=== PATIENT | female | born 1990 | race Caucasian/White ===

== ENCOUNTER 2016-06-22 11:47 | Emergency (ER) | payer BC, MEDICAID ==
[~2016-06-22] VITALS: Ht 157.5 cm; Wt 79.2 kg
[~2016-06-22 11:47] MED LIST: CRES10 PO
[2016-06-22 12:01] VITALS: Ht 157.5 cm; Wt 79.2 kg
[2016-06-22] MEDS ORDERED: D-ME473S18 PO (13:40)
[2016-06-22] MEDS ORDERED: IBUP-1542 PO (13:40)
[2016-06-22] MEDS ORDERED: AZIT250T94 PO (13:40)
--- NOTE | 2016-06-22 13:45 | ERD ---
ER Documentation Chief Complaint Date/Time DATE: 06/22/16 TIME: 13:43 Chief Complaint B ear pain and diminished hearing X 3 days. HPI This 25-year-old female presents with bilateral ear pain and cough congestion for last 3 days. There is no history of vomiting, abdominal pain, diarrhea, neck stiffness, rashes ROS All systems reviewed and are negative except as per history of present illness. Medications Home Meds Active Scripts Dextromethorphan Hb-Promethazine Hcl (Promethazine DM Syrup) 473 Ml Syrup, 5 ML PO Q6H Y for COUGH, #4 OZ Prov:RONEY VASQUEZ MD 06/22/16 Ibuprofen* (Motrin*) 600 Mg Tab, 600 MG PO Q6, #15 TAB Prov:RONEY VASQUEZ MD 06/22/16 Azithromycin* (Zithromax*) 250 Mg Tablet, 250 MG PO .ZPACK DIRECTED, #6 TAB TAKE 500 MG (2 TABS) THE FIRST DAY THEN 250 MG (1 TAB) DAYS 2-5 Prov:RONEY VASQUEZ MD 06/22/16 Reported Medications Rosuvastatin Calcium* (Crestor*) 10 Mg Tablet, 10 MG PO DAILY 05/20/12 Allergies Allergies: Coded Allergies: No Known Allergies (Verified Allergy, Mild, 05/20/12) PMhx/Soc History of Surgery: No Anesthesia Reaction: No Hx Neurological Disorder: No Hx Respiratory Disorders: No Hx Cardiac Disorders: No Hx Psychiatric Problems: No Hx Miscellaneous Medical Probl: Yes (HIGH CHOLESTEROL) Hx Alcohol Use: No Hx Substance Use: No Hx Tobacco Use: No Physical Exam Vitals Vital Signs Date Time Temp Pulse Resp B/P Pulse Ox O2 Delivery O2 Flow Rate FiO2 06/22/16 12:01 97.3 77 18 129/66 98 Physical Exam Const: [] Alert, [id number] per Head: Atraumatic Eyes: Normal Conjunctiva ENT: Normal External Ears, Nose and Mouth. Pupils nasal congestion. TMs red and bulging. Neck: Full range of motion..~ No meningismus. Resp: Clear to auscultation bilaterally Cardio: Regular rate and rhythm, no murmurs Abd: Soft, non tender, non distended. Normal bowel sounds Skin: No petechiae or rashes Back: No midline or flank tenderness Ext: No cyanosis, or edema Neur: Awake and alert Psych: Normal Mood and Affect Procedures/MDM Patient presents with URI symptoms and signs of otitis media, she will treated with Zithromax, ibuprofen promethazine. The patient was stable with no new complaints during the ER course. Clinically, there is no current evidence to suggest meningitis, sepsis, acute abdomen, pneumonia, acute coronary syndrome, pulmonary embolism, or any other emergent condition appearing to require further evaluation or hospitalization. The patient should certainly return for any new or worsening symptoms per the aftercare instructions. They should otherwise follow-up with her primary care doctor for reevaluation this week. Departure Diagnosis: Primary Impression: Otitis media Otitis media type: suppurative Laterality: bilateral Chronicity: acute Recurrence: not specified as recurrent Spontaneous tympanic membrane rupture: without spontaneous rupture Qualified Code: H66.003 - Acute suppurative otitis media of both ears without spontaneous rupture of tympanic membranes, recurrence not specified Condition: Stable Patient Instructions: Otitis Media, Abx Tx (Adult) Additional Instructions: Recheck for new or worsening symptoms or primary care doctor. RONEY VASQUEZ MD Jun 22, 2016 13:45
== END 2016-06-22 14:10 | disposition home or self-care (01) ==
LOC: FTE 11:47
DX: H66.003 Acute suppurative otitis media without spontaneous rupture of ear drum, bilateral (principal)
CPT/HCPCS: 99284